=== PATIENT | male | born 1965 | race Caucasian/White ===

== ENCOUNTER 2017-08-22 22:17 | Emergency (ER) | payer OTHER ==
[2017-08-22 22:44] VITALS: BP 175/90; PULSE 100; TEMP 98.9; BMI 41.5
--- NOTE | 2017-08-22 23:10 | PDOC ---
History of Present Illness - General History Source: Patient Exam Limitations: No Limitations - History of Present Illness Travel History: No Initial Comments: 08/23/17 00:01 Best Contact: Pmhx:DM type 2/ HTN Pshx: N/A Allergies: NKDA 51-year-old male presents to the emergency department with his children complaining of epigastric abdominal discomfort 4 days. Patient states he's been nauseous since yesterday but had 2 bouts of vomiting today which were nonbilious and nonbloody. Pain is described as 5/10 a burning intermittent discomfort which travels superiorly causing him to burp and have an acidic taste to his mouth. There are no alleviating or exacerbating factors. Patient denies fever, chills, chest pain, shortness of breath, flank pains, urinary symptoms. No history of similar symptoms. <Yao Saunders - Last Filed: 08/23/17 01:06> <Félix Davila - Last Filed: 08/25/17 09:30> - General Chief Complaint: Nausea/Vomiting Stated Complaint: VOMITING Time Seen by Provider: 08/22/17 23:00 Past History - Past Medical History Diabetes: Yes HTN: Yes Hypercholesterolemia: Yes Kidney Stones: Yes - Surgical History GI Surgery: Yes (removal of kidney stone) - Suicide/Smoking/Psychosocial Hx Smoking History: Never smoked Have you smoked in the past 12 months: No Information on smoking cessation initiated: No Hx Alcohol Use: No Drug/Substance Use Hx: No Substance Use Type: None <Yao Saunders - Last Filed: 08/23/17 01:06> <Félix Davila - Last Filed: 08/25/17 09:30> - Past Medical History Allergies/Adverse Reactions: Allergies Allergy/AdvReac Type Severity Reaction Status Date / Time No Known Allergies Allergy Verified 08/22/17 22:44 Home Medications: Ambulatory Orders Glipizide [Glipizide ER] 2.5 mg PO DAILY 05/12/14 metFORMIN XR [Glucophage *Xr* -] 750 mg PO DAILY@0700 05/12/14 Review of Systems - Review of Systems Able to Perform ROS?: Yes Comments:: 08/23/17 00:03 CONSTITUTIONAL: Absent: fever, chills, diaphoresis, generalized weakness, malaise, loss of appetite HEENT: Absent: rhinorrhea, nasal congestion, throat pain, throat swelling, difficulty swallowing, mouth swelling, ear pain, eye pain, visual Changes CARDIOVASCULAR: Absent: chest pain, loss of consciousness, palpitations, irregular heart rate, peripheral edema RESPIRATORY: Absent: cough, shortness of breath, dyspnea with exertion, orthopnea, wheezing, stridor, hemoptysis GASTROINTESTINAL: +epigastric pain Absent: abdominal distension, nausea, vomiting, diarrhea, constipation, melena , hematochezia GENITOURINARY: Absent: dysuria, frequency, urgency, hesitancy, hematuria, flank pain, genital pain MUSCULOSKELETAL: Absent: myalgia, arthralgia, joint swelling SKIN: Absent: rash, itching, pallor Is the patient limited [place]anian proficient: No <Yao Saunders - Last Filed: 08/23/17 01:06> *Physical Exam - Vital Signs Last Vital Signs Temp Pulse Resp BP Pulse Ox 98.9 F 100 H 18 175/90 98 08/22/17 22:39 08/22/17 22:39 08/22/17 22:39 08/22/17 22:39 08/22/17 22:39 - Physical Exam Comments: 08/23/17 00:04 GENERAL: Well developed, well nourished. Awake and alert. No acute distress. HEENT: Normocephalic, atraumatic. PERRLA, EOMI. No conjunctival pallor. Sclera are non- icteric. Moist mucous membranes. Oropharynx is clear. NECK: Supple. Full ROM. No JVD. Carotid pulses 2+ and symmetric, without bruits. No thyromegaly. No lymphadenopathy. CARDIOVASCULAR: Regular rate and rhythm. No murmurs, rubs, or gallops. Distal pulses are 2+ and symmetric. PULMONARY: No evidence of respiratory distress. Lungs clear to auscultation bilaterally. No wheezing, rales or rhonchi. ABDOMINAL: +epigastric pain Soft. Non-tender. Non-distended. No rebound or guarding. No organomegaly. Normoactive bowel sounds. MUSCULOSKELETAL Normal range of motion at all joints. No bony deformities or tenderness. No CVA tenderness. EXTREMITIES: No cyanosis. No clubbing. No edema. No calf tenderness. SKIN: Warm and dry. Normal capillary refill. No rashes. No jaundice. <Yao Saunders - Last Filed: 08/23/17 01:06> - Vital Signs Last Vital Signs Temp Pulse Resp BP Pulse Ox 98.9 F 100 H 18 175/90 98 08/22/17 22:39 08/22/17 22:39 08/22/17 22:39 08/22/17 22:39 08/22/17 22:39 <Félix Davila - Last Filed: 08/25/17 09:30> ED Treatment Course - LABORATORY CBC & Chemistry Diagram: 08/22/17 23:30 08/22/17 23:30 - RADIOLOGY Radiograph Interpretation: 08/23/17 01:06 Ultrasound abdomen limited: Impression mildly enlarged fatty liver <Yao Saunders - Last Filed: 08/23/17 01:06> - LABORATORY CBC & Chemistry Diagram: 08/22/17 23:30 08/22/17 23:30 - ADDITIONAL ORDERS Additional order review: 08/22/17 23:30 RBC 4.87 MCV 90.3 MCHC 34.8 RDW 13.9 MPV 8.6 Neutrophils % 61.4 Lymphocytes % 29.6 Monocytes % 8.1 Eosinophils % 0.3 Basophils % 0.6 - Medications Given in the ED: ED Medications Discontinued Medications Generic Name Dose Route Start Last Admin Trade Name Lisa PRN Reason Stop Dose Admin Al Hydroxide/Mg Hydroxide 30 ml 08/22/17 23:24 08/22/17 23:33 Mylanta Oral Suspension - PO 08/22/17 23:25 30 ml ONCE ONE Administration Sodium Chloride 1,000 mls @ 1,000 mls/hr 08/22/17 23:13 08/22/17 23:33 Normal Saline - IV 08/23/17 00:12 1,000 mls/hr ASDIR STA Administration Famotidine 20 mg in 12 mls @ 144 mls/hr 08/22/17 23:24 08/22/17 23:33 Pepcid 20 Mg/12 Ml Push IVPB 08/22/17 23:28 144 mls/hr ONCE ONE Administration Lidocaine HCl 15 ml 08/22/17 23:30 08/22/17 23:33 Xylocaine 2% Viscous MM 08/22/17 23:31 15 ml ONCE ONE Administration Ondansetron HCl 4 mg 08/22/17 23:13 08/22/17 23:33 Zofran Injection IVPUSH 08/22/17 23:14 4 mg ONCE ONE Administration <Félix Davila - Last Filed: 08/25/17 09:30> Medical Decision Making - Medical Decision Making 08/23/17 00:08 51-year-old male presents to the ER complaining of epigastric discomfort radiating up to his throat with an acid taste to his mouth causing him to burp. Patient denies any nausea/vomiting, fever/chills. Patient was given Pepcid IV, Maalox 30 mL's with 15 mL of viscous lidocaine. Abdominal ultrasound was benign. Patient felt better after the GI cocktail. Patient will follow up with GI. Patient was informed to return back to the ER for severe/persistent or worsening symptoms. <Yao Saunders - Last Filed: 08/23/17 01:06> - Medical Decision Making The patient was seen and evaluated in conjunction with JONY Saunders under my direct supervision, ancillary studies were reviewed. I agree with the plan as outlined by JONY Saunders. <Félix Davila - Last Filed: 08/25/17 09:30> *DC/Admit/Observation/Transfer - Discharge Dispostion Admit: No <Yao Saunders - Last Filed: 08/23/17 01:06> <Félix Davila - Last Filed: 08/25/17 09:30> Diagnosis at time of Disposition: Gastritis Qualifiers: Gastritis type: other gastritis Chronicity: acute Gastritis bleeding: without bleeding Qualified Code(s): K29.00 - Acute gastritis without bleeding - Discharge Dispostion Disposition: HOME Condition at time of disposition: Stable - Referrals Referrals: Fabian Garcia MD [Primary Care Provider] - - Patient Instructions Printed Discharge Instructions: DI for Gastritis Additional Instructions: Avoid acidic foods Follow up with the Coiler Operator within 48 hours Return to the ER for severe/persistent/worsening symptoms Tums before each meal Nexium daily for 2 weeks Print Language: ESTONIAN - Post Discharge Activity
[2017-08-22] MEDS ORDERED: SODIUM CHLORIDE 1,000 ML IV STA (23:13)
[2017-08-22] MEDS ORDERED: ONDANSETRON 4 MG/2 ML VIAL IVPUSH ONE (23:13)
[2017-08-22] MEDS ORDERED: ONDANSETRON 4 MG/2 ML VIAL ONE (23:15)
[2017-08-22] MEDS ORDERED: MAG HYDROX/AL HYDROX/SIMETH 30 ML UNIT-DOSE CUP PO ONE (23:24)
[2017-08-22] MEDS ORDERED: FAMOTIDINE IV 20 MG/12 ML VIAL IVPB ONE (23:24)
[2017-08-22] MEDS ORDERED: FAMOTIDINE 20 MG/50 ML IVPB 20 MG/50 ML MG IVPB ONE (23:27)
[2017-08-22] MEDS ORDERED: MAG HYDROX/AL HYDROX/SIMETH 30 ML UNIT-DOSE CUP ONE (23:27)
[2017-08-22] MEDS ORDERED: LIDOCAINE VISCOUS 2% ORAL/TOP 20 ML UNIT-DOSE CUP ONE (23:30)
[2017-08-22] MEDS ORDERED: LIDOCAINE VISCOUS 2% ORAL/TOP 100 ML BOTTLE MM ONE (23:30)
[2017-08-22 23:38] LABS: BASO % 0.6 % (0-2.0); EOS % 0.3 % (0-4.5); HEMOGLOBIN 15.3 GM/dL (11.7-16.9); LYMPH % 29.6 % (8-40); MCH 31.4 pg (25.7-33.7); MCHC 34.8 g/dl (32.0-35.9); MEAN CELL VOLUME 90.3 fl (80-96); MEAN PLT VOLUME 8.6 fl (7.5-11.1); MONO % 8.1 % (3.8-10.2); NEUT % 61.4 % (42.8-82.8); PLATELET COUNT 242 K/MM3 (134-434); RBC 4.87 M/mm3 (4.00-5.60); RDW 13.9 % (11.9-15.9); WHITE BLOOD COUNT 7.6 K/mm3 (4.0-10.0)
[2017-08-23 00:10] LABS: ALBUMIN 3.9 g/dl (3.4-5.0); ANION GAP 8 (8-16); BILIRUBIN,TOTAL 0.4 mg/dL (0.2-1.0); BLOOD UREA NITROGEN 17 mg/dL (7-18); CALCIUM 9.6 mg/dL (8.5-10.1); CHLORIDE 101 mmol/L (98-107); CO2 30 mmol/L (21-32); CREATININE 0.8 mg/dL (0.7-1.3); GLUCOSE,RANDOM 281 mg/dL (74-106); POTASSIUM 4.2 mmol/L (3.5-5.1); SGOT/AST 19 U/L (15-37); SGPT/ALT 45 U/L (12-78); SODIUM 139 mmol/L (136-145); TOT PROT 7.9 g/dl (6.4-8.2)
[2017-08-23 00:11] LABS: ALK PHOS 76 U/L (45-117)
[2017-08-23 00:13] LABS: LIPASE 209 U/L (73-393)
== END 2017-08-23 00:51 | disposition home or self-care (01) ==
LOC: JER 22:17 → JERFT 22:17
PROC: 3E033GC Introduction of Other Therapeutic Substance into Peripheral Vein, Percutaneous Approach (ICD-10-PCS; principal; 2017-08-22)
PROC: 3E033GC Introduction of Other Therapeutic Substance into Peripheral Vein, Percutaneous Approach (ICD-10-PCS; 2017-08-22)
DX: K29.00 Acute gastritis without bleeding (principal); I10 Essential (primary) hypertension; E78.00 Pure hypercholesterolemia, unspecified; E11.9 Type 2 diabetes mellitus without complications; Z79.84 Long term (current) use of oral hypoglycemic drugs
CPT/HCPCS: 36415; 76705-TC; 80053; 83690; 85025; 96374; 96375; 99281-25; J7030